=== PATIENT | female | born 1995 | race African-American/Black ===

== ENCOUNTER 2017-03-13 04:27 | Emergency (ER) | payer OTHER ==
[~2017-03-13] VITALS: Ht 165.1 cm; Wt 57.7 kg
[~2017-03-13 04:27] MED LIST: FIORICET,ESG1 TABLET PO; ZOFRAN4 MG PO
[2017-03-13 05:24] LABS: BASOPHIL COUNT 0.1 K/uL (0-0.1); EOSINOPHIL (%) 0.5 % (0-5); EOSINOPHIL COUNT 0.1 K/uL (0-0.3); HEMATOCRIT 37.1 % (36.0-46.0); IMMATURE GRANULOCYTE (%) 0.3 % (0.0-0.7); INSTRUMENT ABS NEUTROPHIL CT 7.6 K/uL; LYMPHOCYTE COUNT 1.9 K/uL (1.0-2.8); MCH 29.2 PG (29.0-34.0); MCHC 33.2 G/DL (30.0-36.0); MCV 88.1 FL (83-99); MEAN PLAT.VOLUME 9.9 uM^3 (9.5-12.4); MONOCYTE (%) 7.7 % (3-12); MONOCYTE COUNT 0.8 K/uL (0-0.8); NEUTROPHIL (%) 72.5 % (45-76); NEUTROPHIL COUNT 7.6 K/uL (1.8-6.4); PLATELET COUNT 220 K/uL (156-360); RBC DIS.WIDTH-CV 13.3 % (11.8-14.6); RBC DIS.WIDTH-SD 43.2 % (39-53); RED BLOOD COUNT 4.21 M/uL (3.80-5.20); WHITE BLOOD COUNT 10.4 K/uL (4.1-10.2)
[2017-03-13 05:26] LABS: CHLORIDE 107 mEq/L (99-109); POTASSIUM 3.4 mEq/L (3.7-5.4); SODIUM 141 mEq/L (136-147)
[2017-03-13 05:28] LABS: GLUCOSE 104 mg/dL (70-99)
[2017-03-13 05:30] LABS: ANION GAP 15 MEQ/L (2-14); TOTAL BILIRUBIN 0.5 mg/dL (0.0-1.0)
[2017-03-13 05:32] LABS: ALKALINE PHOSPHATASE 70 IU/L (3-129); GFR ESTIMATE (CALCULATED) > 59 mL/min/
[2017-03-13 05:33] LABS: UREA NITROGEN (BUN) 12 mg/dL (9-23)
[2017-03-13 05:35] LABS: LIPASE 27 U/L (1.0-51.0)
[2017-03-13 05:41] LABS: QUANTITATIVE HCG < 4.0 MIU/ML
[2017-03-13] MEDS ORDERED: REGLAN10 MG PO (06:40)
[2017-03-13] MEDS ORDERED: BENTYL20 MG PO (06:40)
[2017-03-13] MEDS ORDERED: CARAFATE1 GM PO (06:40)
[2017-03-13 07:47] VITALS: BP 122/86
== END 2017-03-13 07:49 | disposition home or self-care (01) ==
LOC: EME 04:27
PROVIDERS: Emergency Medicine
DX: K52.9 Noninfective gastroenteritis and colitis, unspecified (principal); E86.0 Dehydration; F17.200 Nicotine dependence, unspecified, uncomplicated
CPT/HCPCS: 74177; 80053; 81003; 83690; 84702; 85025; 99281; 99284; J0500; J1885; J2270; J2405; J2765; J7030

== ENCOUNTER 2017-09-04 21:38 | Emergency (ER) | payer OTHER ==
[~2017-09-04] VITALS: Ht 167.6 cm; Wt 58.0 kg
[~2017-09-04 21:38] MED LIST changes: +BENTYL20 MG PO; +CARAFATE1 GM PO; +REGLAN10 MG PO
[2017-09-04 22:17] LABS: HEMATOCRIT 34.3 % (36.0-46.0); HEMOGLOBIN 11.7 G/DL (11.9-15.5); MCH 29.7 PG (29.0-34.0); MCHC 34.1 G/DL (30.0-36.0); MCV 87.1 FL (83-99); PLATELET COUNT 249 K/uL (156-360); RBC DIS.WIDTH-CV 12.8 % (11.8-14.6); RBC DIS.WIDTH-SD 40.8 % (39-53); RED BLOOD COUNT 3.94 M/uL (3.80-5.20); WHITE BLOOD COUNT 14.5 K/uL (4.1-10.2)
[2017-09-04 22:31] LABS: CHLORIDE 103 mEq/L (99-109); POTASSIUM 3.4 mEq/L (3.7-5.4); SODIUM 137 mEq/L (136-147)
[2017-09-04 22:32] LABS: GLUCOSE 108 mg/dL (70-99)
[2017-09-04 22:36] LABS: CREATININE 0.8 mg/dL (0.6-1.3); GFR ESTIMATE (CALCULATED) > 59 mL/min/
[2017-09-04 22:37] LABS: UREA NITROGEN (BUN) 8 mg/dL (9-23)
[2017-09-05] MEDS ORDERED: AMOXICILLIN875 MG PO (01:04)
[2017-09-05 01:23] LABS: QUANTITATIVE HCG < 4.0 MIU/ML
[2017-09-05 01:54] LABS: SOURCE SWAB
[2017-09-05] MEDS ORDERED: AUGMENTIN875 MG PO (02:00)
[2017-09-05 02:14] LABS: APPEARANCE CLOUDY ((CLEAR)); BILIRUBIN NEGATIVE; BLOOD SMALL; COLOR YELLOW ((YELLOW)); GLUCOSE (STRIP) NEGATIVE; KETONES NEGATIVE; LEUKOCYTES LARGE; NITRITE NEGATIVE; PROTEIN (STRIP) 30; SPECIFIC GRAVITY 1.021 (1.000-1.030)
[2017-09-05 02:22] LABS: BACTERIA NONE SEEN /HPF; EPITHELIAL CELLS 1+ /HPF; MUCUS 3+ /LPF; UCUL ADDED? YES; WHITE BLOOD CELLS TNTC /HPF (0-5)
[2017-09-05 02:36] VITALS: BP 107/69
== END 2017-09-05 02:36 | disposition home or self-care (01) ==
LOC: EME 21:38
PROVIDERS: Physician Assistant
DX: J02.0 Streptococcal pharyngitis (principal); N89.8 Other specified noninflammatory disorders of vagina; R10.2 Pelvic and perineal pain; F17.200 Nicotine dependence, unspecified, uncomplicated
CPT/HCPCS: 71046; 80048; 81003; 84702; 85027; 87086; 87210; 87491; 87591; 87651 90; 99281; 99284

== ENCOUNTER 2017-10-30 21:33 | Emergency (ER) | payer OTHER ==
[~2017-10-30] VITALS: Ht 165.1 cm; Wt 59.0 kg
[~2017-10-30 21:33] MED LIST changes: +AMOXICILLIN875 MG PO; +AUGMENTIN875 MG PO
[2017-10-30 22:19] LABS: HEMATOCRIT 32.1 % (36.0-46.0); HEMOGLOBIN 11.2 G/DL (11.9-15.5); MCHC 34.9 G/DL (30.0-36.0); MCV 86.1 FL (83-99); PLATELET COUNT 215 K/uL (156-360); RBC DIS.WIDTH-CV 14.2 % (11.8-14.6); RBC DIS.WIDTH-SD 44.8 % (39-53); RED BLOOD COUNT 3.73 M/uL (3.80-5.20); WHITE BLOOD COUNT 13.3 K/uL (4.1-10.2)
[2017-10-30 22:28] LABS: ALBUMIN 3.8 g/dL (3.2-4.8)
[2017-10-30 22:29] LABS: CHLORIDE 104 mEq/L (99-109); POTASSIUM 3.4 mEq/L (3.7-5.4); SODIUM 136 mEq/L (136-147)
[2017-10-30 22:31] LABS: GLUCOSE 92 mg/dL (70-99); TOTAL PROTEIN 7.8 g/dL (6.4-8.3)
[2017-10-30 22:33] LABS: TOTAL BILIRUBIN 0.5 mg/dL (0.0-1.0)
[2017-10-30 22:34] LABS: ALKALINE PHOSPHATASE 82 IU/L (3-129)
[2017-10-30 22:35] LABS: CREATININE 0.8 mg/dL (0.6-1.3); GFR ESTIMATE (CALCULATED) > 59 mL/min/
[2017-10-30 22:36] LABS: AST (GOT) 13 IU/L (2-34); UREA NITROGEN (BUN) 9 mg/dL (9-23)
[2017-10-30 22:37] LABS: ALT (GPT) 9 IU/L (3-49)
[2017-10-30 22:38] LABS: LIPASE 18 U/L (1.0-51.0)
[2017-10-30 22:43] LABS: QUANTITATIVE HCG < 4.0 MIU/ML
[2017-10-31 00:05] LABS: APPEARANCE CLEAR ((CLEAR)); BILIRUBIN NEGATIVE; BLOOD SMALL; COLOR YELLOW ((YELLOW)); GLUCOSE (STRIP) NEGATIVE; KETONES NEGATIVE; LEUKOCYTES MODERATE; NITRITE NEGATIVE; PROTEIN (STRIP) NEGATIVE; SPECIFIC GRAVITY 1.012 (1.000-1.030); UROBILINOGEN 0.2 MG/DL (0.2-1.0)
[2017-10-31 00:07] LABS: BACTERIA NONE SEEN /HPF; EPITHELIAL CELLS RARE /HPF; MUCUS TRACE /LPF; RED BLOOD CELLS 0-5 /HPF (0-5); UCUL ADDED? YES; WHITE BLOOD CELLS TNTC /HPF (0-5)
[2017-10-31] MEDS ORDERED: CIPRO500 MG PO (00:14)
[2017-10-31 01:22] VITALS: BP 112/75
== END 2017-10-31 01:24 | disposition home or self-care (01) ==
LOC: EME 21:33
PROVIDERS: Emergency Medicine
DX: N12 Tubulo-interstitial nephritis, not specified as acute or chronic (principal); R05 Cough; Z87.440 Personal history of urinary (tract) infections; F17.200 Nicotine dependence, unspecified, uncomplicated
CPT/HCPCS: 71046; 80053; 81003; 83690; 84702; 85027; 87086; 99281; 99284; J7030

== ENCOUNTER 2017-11-19 18:03 | Emergency (ER) | payer OTHER ==
[~2017-11-19] VITALS: Ht 165.1 cm; Wt 55.3 kg
[~2017-11-19 18:03] MED LIST changes: +CIPRO500 MG PO
[2017-11-19 18:09] VITALS: BP 132/106
[2017-11-19] MEDS ORDERED: KENALOG,ARISTOC80 G1 TP (18:31)
== END 2017-11-19 18:46 | disposition home or self-care (01) ==
LOC: EME 18:03
DX: L20.9 Atopic dermatitis, unspecified (principal); F17.200 Nicotine dependence, unspecified, uncomplicated
CPT/HCPCS: 99281; 99283

== ENCOUNTER 2017-12-16 00:58 | Emergency (ER) | payer OTHER ==
[~2017-12-16] VITALS: Ht 167.6 cm; Wt 51.9 kg
[~2017-12-16 00:58] MED LIST changes: +KENALOG,ARISTOC80 G1 TP
[2017-12-16 01:41] LABS: HEMATOCRIT 38.5 % (36.0-46.0); MCH 29.1 PG (29.0-34.0); MCHC 33.8 G/DL (30.0-36.0); MCV 86.1 FL (83-99); PLATELET COUNT 266 K/uL (156-360); RBC DIS.WIDTH-CV 13.9 % (11.8-14.6); RBC DIS.WIDTH-SD 43.6 % (39-53); RED BLOOD COUNT 4.47 M/uL (3.80-5.20); WHITE BLOOD COUNT 10.2 K/uL (4.1-10.2)
[2017-12-16 01:53] LABS: ALBUMIN 4.2 g/dL (3.2-4.8)
[2017-12-16 01:54] LABS: CHLORIDE 104 mEq/L (99-109); POTASSIUM 3.5 mEq/L (3.7-5.4); SODIUM 136 mEq/L (136-147)
[2017-12-16 01:56] LABS: GLUCOSE 96 mg/dL (70-99); TOTAL PROTEIN 8.1 g/dL (6.4-8.3)
[2017-12-16 01:58] LABS: TOTAL BILIRUBIN 0.5 mg/dL (0.0-1.0)
[2017-12-16 01:59] LABS: ALKALINE PHOSPHATASE 88 IU/L (3-129)
[2017-12-16 02:00] LABS: CREATININE 0.9 mg/dL (0.6-1.3); GFR ESTIMATE (CALCULATED) > 59 mL/min/
[2017-12-16 02:01] LABS: AST (GOT) 14 IU/L (2-34); UREA NITROGEN (BUN) 15 mg/dL (9-23)
[2017-12-16 02:03] LABS: ALT (GPT) 8 IU/L (3-49)
[2017-12-16 02:09] LABS: QUANTITATIVE HCG < 4.0 MIU/ML
[2017-12-16 03:12] LABS: LIPASE 25 U/L (1.0-51.0)
[2017-12-16 04:03] LABS: APPEARANCE SL.HAZY ((CLEAR)); BILIRUBIN NEGATIVE; BLOOD MODERATE; COLOR YELLOW ((YELLOW)); GLUCOSE (STRIP) NEGATIVE; KETONES 20; LEUKOCYTES LARGE; NITRITE NEGATIVE; PROTEIN (STRIP) 30; SPECIFIC GRAVITY 1.023 (1.000-1.030); UROBILINOGEN 0.2 MG/DL (0.2-1.0)
[2017-12-16 04:16] LABS: BACTERIA 2+ /HPF; EPITHELIAL CELLS RARE /HPF; MUCUS 4+ /LPF; RED BLOOD CELLS 0-5 /HPF (0-5); UCUL ADDED? YES; WHITE BLOOD CELLS TNTC /HPF (0-5)
[2017-12-16 04:26] LABS: SOURCE URINE
[2017-12-16] MEDS ORDERED: ZOFRAN ODT8 MG PO (05:21)
[2017-12-16] MEDS ORDERED: KEFLEX500 MG PO (05:21)
[2017-12-16] MEDS ORDERED: ZANTAC300 MG PO (05:21)
[2017-12-16 05:38] VITALS: BP 110/67
[2017-12-16 13:25] LABS: CHLAMYDIA TRACHOMATIS NEGATIVE; NEISSERIA GONORRHOEAE NEGATIVE
== END 2017-12-16 05:41 | disposition home or self-care (01) ==
LOC: EME 00:58
DX: R10.13 Epigastric pain (principal); R11.2 Nausea with vomiting, unspecified; N39.0 Urinary tract infection, site not specified; F17.200 Nicotine dependence, unspecified, uncomplicated
CPT/HCPCS: 80053; 81003; 83690; 84702; 85027; 87077; 87086; 87186; 87491; 87591; 99281; 99285; J0696; J1885; J2405; J7030; S0028